=== PATIENT | male | born 1980 | race Caucasian/White ===

== ENCOUNTER → 2019-08-17 16:16 | Outpatient (BNVA) | payer OTHER, SELFPAY | PROVIDERS: Family Provider Nurse Practitioner; PCP Nurse Practitioner; Visit Provider Nurse Practitioner Family | DX: F17.200 Nicotine dependence, unspecified, uncomplicated (principal); I10 Essential (primary) hypertension | CPT/HCPCS: 80053; 80061; 83721; 85025 ==

== ENCOUNTER → 2020-05-06 10:44 | Outpatient (BNVA) | payer OTHER, SELFPAY | PROVIDERS: Family Provider Nurse Practitioner; PCP Nurse Practitioner; Visit Provider Nurse Practitioner Family | DX: I10 Essential (primary) hypertension (principal); R53.83 Other fatigue; F17.200 Nicotine dependence, unspecified, uncomplicated | CPT/HCPCS: 80053; 80061; 82306; 82607; 84443; 85025 ==

== ENCOUNTER 2021-03-28 19:19 | Emergency (ER) | payer SELFPAY ==
[2021-03-28 19:22] VITALS: BP 139/94; PULSE 120; RESP 16; TEMP 36.8; O2SAT 97; BMI 25.7
--- NOTE | 2021-03-28 20:48 | W.ED.ALLEREA ---
HPI - Allergic Reaction General: Chief complaint: Allergic Reaction Stated complaint: Bee Sting/Swelling on neck Time Seen by Provider: 03/28/21 19:39 History of Present Illness: HPI narrative: 40-year-old male says he was stung by an insect in the mid back around 5:30 PM. He was stung again evidently in the left sabianist.Following, he began to notice raised areas on his arms, back, and left side of his neck. These are swollen red areas as well. He drank some children's Benadryl. No other treatment. He is not having any trouble breathing. He does note swelling in his neck, that is a bit difficult to swallow around he says. He is maintaining his own secretions. He has not had reactions like this in the past to stings. MD complaint: allergic reaction Onset (ago): hour(s) Exposure: insect bite Associated symptoms: Reports dysphagia; Deny abdominal pain, difficulty breathing, dizziness, facial swelling, lip swelling, nausea, tongue swelling or vomiting Severity: moderate Treatment prior to arrival: benadryl Previous Allergic Reaction History: none Review of Systems Const: Denies: fever(s) Card: Denies: chest pain Resp: Denies: dyspnea, productive cough, non-productive cough or wheezing GI: Reports: dysphagia; Denies: abdominal pain, nausea or vomiting Neuro: Denies: dizziness All/Imm: Denies: tongue swelling or facial swelling [facility] ED PFSH: Medical History (Updated 03/28/21 @ 21:58 by Jose Harper DO) Hypertension Surgical History Hx of shoulder surgery (~2010) Family History Grandfather Diabetes Hypertension Heart disease Social History Smoking and tobacco status: current every day smoker cigarettes Years cigarettes smoked: 20 Second hand smoke exposure: No Alcohol intake: never Lives independently: Yes Household members: spouse and children Marital status: service: No Current occupational status: employed History of recent travel: No Current gender identity: Male Physical Exam Const: COMMON NORMALS: no acute distress, patient oriented x3, healthy appearing and alert Eye: COMMON NORMALS: Equal, round and reactive pupils present and EOMs intact bilaterally PUPIL: Yes Equal, round and reactive pupils present Chest: COMMONS NORMALS: normal inspection of the chest Resp: COMMON NORMALS: normal respiratory effort, No use of accessory muscles and clear to auscultation bilaterally AUSCULTATION: clear to auscultation bilaterally Cardio: COMMON NORMALS: regular rate and regular rhythm RATE: regular rate RHYTHM: regular rhythm Neuro: COMMON NORMALS: patient oriented x3 SENSORIUM/ORIENTATION: Yes alert Skin: NARRATIVE SKIN EXAM: Soft tissue swelling to the left side of the neck with minimal redness. Minimal tenderness. Apparent sting to the mid thoracic back with mild local reaction. Apparent sting to the left sabianist with minimal reaction. Raised urticaria on the right forearm. Course Vital Signs: Vital signs: Vital Signs Temperature 98.3 F 03/28/21 19:22 Pulse Rate 78 03/28/21 22:12 Respiratory Rate 20 H 03/28/21 22:12 Blood Pressure 138/82 03/28/21 22:12 Pulse Oximetry 99 03/28/21 22:12 MDM - Allergic Reaction MDM Narrative: Medical decision making narrative: 40-year-old male with localized swelling to his left neck following insect sting. He is improved now after IV Benadryl and Solu-Medrol as well as Pepcid. He is swallowing much easier. He will be prescribed an EpiPen, in case he has a more severe reaction the next time he is stung. Methylprednisolone for the next few days in order to prevent rebound reaction. Benadryl for the next 24 hours. Discharge Plan Discharge Patient Disposition: Home Clinical Impression: Allergic reaction Qualifiers: Encounter type: initial encounter Qualified Code(s): T78.40XA - Allergy, unspecified, initial encounter Insect bite Qualifiers: Encounter type: initial encounter Site of insect bite: thoracic wall Front or back of thoracic wall: back Thoracic wall location detail: unspecified Qualified Code(s): S20.469A - Insect bite (nonvenomous) of unspecified back wall of thorax, initial encounter Condition: Stable Prescriptions: New Medrol (Adair) 4 mg tablets,dose pack See Rx Instructions .ROUTE .COMPLEX Qty: 21 RF: 0 EpiPen 2-Adair 0.3 mg/0.3 mL auto-injector 0.3 mg IM Q10M PRN (Reason: hypersensitivity reaction) Qty: 2 RF: 0 No Action lisinopril 10 mg tablet See Rx Instructions .ROUTE .COMPLEX Qty: 90 RF: 3 ergocalciferol (vitamin D2) 1,250 mcg (50,000 unit) capsule 1,250 mcg PO DAILY Qty: 4 RF: 2 Discharge Orders: Discharge ED (Routine); Ordered 03/28/21 Ordered By: Jose Harper Referrals: Christi Vu FNP [Primary Care Provider] - 4-7 days Patient Instructions: Allergic Reaction, Insect Bite or Sting (ED) Activity Restrictions/Additional Instructions: Use Benadryl 25 mg every 6 hours for the next 24 hours, then as needed. Other medications as directed. After 24 hours, you may consider using Claritin or Zyrtec instead of Benadryl. An EpiPen has been prescribed to you. Only use the EpiPen for significant reactions after resting. If you use the EpiPen, you should come to the emergency department for evaluation immediately following. Return for any concerns. Coding Level of Care Code ED Clinical Nurse Leader for [facility] Exam Detailed
[2021-03-28] MEDS: diphenhydrAMINE 50 mg/mL SDV 1mL IVP (20:52)
[2021-03-28] MEDS: famotidine 20 mg/2 mL INJ IVP (20:52)
[2021-03-28 21:30] VITALS: BP 141/78; PULSE 78; RESP 20; O2SAT 99
[2021-03-28 22:12] VITALS: BP 138/82; PULSE 78; RESP 20; O2SAT 99
== END 2021-03-28 22:00 | disposition home or self-care (01) ==
PROVIDERS: Emergency Provider Emergency Medicine; PCP Nurse Practitioner Family
DX: T63.441A Toxic effect of venom of bees, accidental (unintentional), initial encounter (principal); I10 Essential (primary) hypertension; F17.210 Nicotine dependence, cigarettes, uncomplicated
CPT/HCPCS: 96374; 96375; 99283; J1200; J2930; J3490

== ENCOUNTER → 2021-04-14 08:38 | Outpatient (BNVA) | payer SELFPAY | PROVIDERS: PCP Nurse Practitioner Family; Visit Provider Dermatology | DX: Z13.9 Encounter for screening, unspecified (principal) ==

== ENCOUNTER → 2022-05-11 11:03 | Outpatient (BNVA) | payer OTHER, SELFPAY | PROVIDERS: PCP Nurse Practitioner Family; Visit Provider Psychiatry & Neurology Neurology | DX: F90.0 Attention-deficit hyperactivity disorder, predominantly inattentive type (principal); Z79.899 Other long term (current) drug therapy | CPT/HCPCS: 80053; 80061; 83036; 84443; 85025 ==

== ENCOUNTER → 2023-06-23 17:09 | Outpatient (BNVA) | payer BC, SELFPAY | PROVIDERS: PCP Nurse Practitioner Family; Visit Provider Nurse Practitioner | DX: R50.9 Fever, unspecified (principal); J06.9 Acute upper respiratory infection, unspecified | CPT/HCPCS: 87426 ==

== ENCOUNTER → 2023-06-24 10:52 | Outpatient (BNVA) | payer BC, SELFPAY | PROVIDERS: PCP Nurse Practitioner Family; Visit Provider Nurse Practitioner Psychiatric/Mental Health | DX: Z79.899 Other long term (current) drug therapy (principal); F90.0 Attention-deficit hyperactivity disorder, predominantly inattentive type; F51.01 Primary insomnia; F17.210 Nicotine dependence, cigarettes, uncomplicated | CPT/HCPCS: 80053; 80307 ==

== ENCOUNTER → 2023-10-28 11:22 | Outpatient (BNVA) | payer BC, SELFPAY | PROVIDERS: PCP Nurse Practitioner Family; Visit Provider Nurse Practitioner Family | DX: I10 Essential (primary) hypertension (principal) | CPT/HCPCS: 80053; 80061; 85025 ==

== ENCOUNTER → 2024-04-30 11:10 | Outpatient (BNVA) | payer BC, SELFPAY | PROVIDERS: PCP Nurse Practitioner Family; Visit Provider Nurse Practitioner Family | DX: I10 Essential (primary) hypertension (principal) | CPT/HCPCS: 80053; 80061; 84443; 85025 ==

== ENCOUNTER 2024-06-04 14:38 | Emergency (ER) | payer BC, SELFPAY ==
[2024-06-04 14:42] VITALS: BP 134/85; PULSE 100; RESP 16; TEMP 36.4; O2SAT 99
--- NOTE | 2024-06-04 16:19 | CTR_ITS ---
PROCEDURE INFORMATION: Exam: CT Head Without Contrast Exam date and time: 06/04/2024 4:44 PM Age: 43 years old Clinical indication: Injury or trauma; Fall; Laceration; Without residual foreign body; Other: Lt eyebrow; Additional info: RDZ TECHNIQUE: Imaging protocol: Computed tomography of the head without contrast. Radiation optimization: All CT scans at this facility use at least one of these dose optimization techniques: automated exposure control; mA and/or kV adjustment per patient size (includes targeted exams where dose is matched to clinical indication); or iterative reconstruction. COMPARISON: No relevant prior studies available. RADIATION DOSE METRICS: Total DLP (mGy-cm): 1084.35 FINDINGS: Brain: No midline shift. Ventricles, cisterns, and sulci are normal. No mass, acute infarct, hemorrhage, or extraaxial fluid collection. Cerebral ventricles: No ventriculomegaly. Paranasal sinuses: Visualized sinuses are unremarkable. No fluid levels. Mastoid air cells: Visualized mastoid air cells are well aerated. Bones: Unremarkable. No acute fracture. Soft tissues: Unremarkable. CT/CT head wo con* [id number] IMPRESSION: No acute intracranial abnormality.
--- NOTE | 2024-06-04 16:52 | XRR_ITS ---
PROCEDURE INFORMATION: Exam: XR Left Ribs with PA Chest Exam date and time: 06/04/2024 5:26 PM Age: 43 years old Clinical indication: Injury or trauma; Fall; Rib area, left side; Blunt trauma TECHNIQUE: Imaging protocol: Radiologic exam of the left ribs with PA chest. Views: 3 views COMPARISON: No relevant prior studies available. FINDINGS: Lungs: Unremarkable. No consolidation. Pleural spaces: Unremarkable. No pleural effusion. No pneumothorax. Heart/Mediastinum: Unremarkable. No cardiomegaly. Bones/joints: Unremarkable. XR/XR ribs LT mn 3V w CXR1V [id number] IMPRESSION: No acute findings.
--- NOTE | 2024-06-04 16:52 | XRR_ITS ---
PROCEDURE INFORMATION: Exam: XR Left Wrist Exam date and time: 06/04/2024 5:29 PM Age: 43 years old Clinical indication: Injury or trauma; Fall; Other: Unknown TECHNIQUE: Imaging protocol: Radiologic exam of the left wrist. Views: 3 or more views. COMPARISON: No relevant prior studies available. FINDINGS: Bones/joints: Normal. Soft tissues: Normal. XR/XR wrist LT min 3V* [id number] IMPRESSION: No acute bony abnormality.
--- NOTE | 2024-06-04 16:56 | ED_ITS ---
HPI - Fall 2 General: Chief Complaint: Fall Stated Complaint: lac left eyebrow (fall, hit head) Time Seen by Provider: 06/04/24 16:36 Source: patient Mode of arrival: ambulatory Limitations: no limitations History of Present Illness: 43-year-old male states he had had a fal l roughly 1 hour ago he states he is unsure what happened he does not really remember the events but knows he and hit his head he has a small laceration above his right eyebrow he states he had a headache since falling he states had some left-sided chest pain as well as much worse with palpation left wrist pain. Denies any headache or chest pain before the event. Associated symptoms-after fall: Reports chest pain and headache(s); Denies abdominal pain or neck pain Related Data Previous Rx's Medication Instructions Recorded epinephrine 0.3 mg/0.3 mL 0.3 mg (0.3 mL) IM Q10M PRN 10/28/23 injection, auto-injector (EpiPen hypersensitivity reaction #2 ea 2-Adair) lisinopril 20 See Rx Instructions .Route 04/30/24 mg-hydrochlorothiazide 12.5 mg .COMPLEX #90 tabs tablet nicotine See Rx Instructions transdermal 04/30/24 21mg/24hr-14mg/24hr-7mg/24hr daily .COMPLEX #56 patches transderm patches,sequentl mirtazapine 15 mg tablet 15 mg PO BEDTIME PRN sleep 30 days 05/17/24 #30 tabs dextroamphetamine-amphetamine ER 40 mg (2 x 20 mg) PO QAM 30 days 05/30/24 20 mg 24hr capsule,extend release #60 caps Allergies Allergy/AdvReac Type Severity Reaction Status Date / Time bee venom protein (honey bee) Allergy Severe ALGY-Anaphy Verified 06/04/24 14:51 laxis Review of Systems 2 Const: Denies: fever(s), chills, body aches or change in appetite Eyes: Denies: change in vision ENMT: Denies: throat pain or dental pain Card: Reports: chest pain Resp: Denies: dyspnea GI: Denies: abdominal pain, nausea, vomiting or diarrhea Musc: Reports: extremity pain; Denies: neck pain or back pain Skin/Breast: Denies: rash Neuro: Reports: headache(s) PFSH ED 2 PFSH: Medical History Primary insomnia Nicotine dependence, cigarettes, uncomplicated ADHD (attention deficit hyperactivity disorder), inattentive type Psychiatric care Hypertension Surgical History Hx of shoulder surgery (~2010) Family History Grandfather Diabetes Hypertension Heart disease Social History Smoking and tobacco/nicotine status: current every day tobacco/nicotine user cigarettes Packs smoked per day: 0.1 Years cigarettes smoked: 20 [ Other cigarette details: smokes 2 cigarettes/day] Second hand smoke exposure: No Alcohol intake: never Substance/Drug Use: never Caregiver/support person: Yes (spouse) Lives independently: Yes Household members: spouse and children Marital status: service: No Current occupational status: employed Current gender identity: Male Special yvonne needs: No Physical Exam 2 Const: COMMON NORMALS: no acute distress, patient oriented x3 and healthy appearing HENMT: OTHER: 2 cm laceration over right eyebrow Neck/C-Spine: COMMON NORMALS: full ROM and supple Chest: COMMONS NORMALS: normal inspection of the chest OTHER: Tenderness noted to left chest wall Resp: COMMON NORMALS: normal respiratory effort, No retractions, No use of accessory muscles and clear to auscultation bilaterally AUSCULTATION: clear to auscultation bilaterally Cardio: COMMON NORMALS: regular rate, regular rhythm and No murmurs present (Cardio) RATE: regular rate RHYTHM: regular rhythm Extremity: COMMON NORMALS: full ROM NARRATIVE EXTREMITY EXAM: Tenderness to left wrist Neuro: COMMON NORMALS: patient oriented x3, moves all extremities and no focal motor deficits Psych: COMMON NORMALS: mental status grossly normal, Normal thought process present and cooperative THOUGHT PROCESS: Normal thought process present Skin: COMMON NORMALS: no rashes or lesions noted and no wounds GENERAL SKIN EXAM: no rashes or lesions noted Procedures Laceration Laceration 1: Site: face Side (If applicable): right Size (cm): 2 Description: linear Depth: simple, single layer Pre-repair: wound explored Skin layer closed with: other (dermabond) Course 2 Vital Signs: Vital signs: Vital Signs Temperature 97.6 F 06/04/24 14:42 Pulse Rate 100 06/04/24 14:42 Respiratory Rate 16 06/04/24 14:42 Blood Pressure 134/85 06/04/24 14:42 Pulse Oximetry 99 06/04/24 14:42 Oxygen Delivery Me thod Room Air 06/04/24 14:42 MDM - Fall Medical Decision Making Patient presents for closed head injury after a fall head CT here is normal did repair his laceration with skin adhesive glue. X-rays here shows no fractures his blood counts normal EKG is normal he stable for discharge follow-up with PCP return if worsening. Medical Records I reviewed the patient's medical records. Lab Data I reviewed the patient's lab results. 06/04/24 17:[address] 06/04/24 16:19 IMPRESSION: No acute intracranial abnormality. Wrist X-Ray 06/04/24 16:52 IMPRESSION: No acute bony abnormality. Laboratory Results WBC 9.97 10^3/uL (3.29-11.43) 06/04/24 17:52 RBC 4.94 10^6/uL (3.85-5.65) 06/04/24 17:52 Hgb 15.70 g/dL (11.27-16.99) 06/04/24 17:52 Hct 46.0 % (37-53) 06/04/24 17:52 MCV 93.1 fl (82-101) 06/04/24 17:52 MCH 31.8 pg (27-33) 06/04/24 17:52 MCHC 34.1 g/dL (30-55) 06/04/24 17:52 RDW 13.1 % (12.1-15.1) 06/04/24 17:52 Plt Count 247 10^3/cmm (157-399) 06/04/24 17:52 MPV 9.9 fL (7.4-10.4) 06/04/24 17:52 Neut % (Auto) 68.5 % 06/04/24 17:52 Lymph % (Auto) 24.6 % 06/04/24 17:52 Humphreys % (Auto) 5.8 % 06/04/24 17:52 Eos % (Auto) 0.5 % 06/04/24 17:52 Baso % (Auto) 0.4 % 06/04/24 17:52 Neut # (Auto) 6.83 10^3/uL (1.8-7.7) 06/04/24 17:52 Lymph # (Auto) 2.5 10^3/uL (0.8-4.8) 06/04/24 17:52 Humphreys # (Auto) 0.6 10^3/uL (0.2-0.9) 06/04/24 17:52 Eos # (Auto) 0.1 10^3/uL (0.0-0.8) 06/04/24 17:52 Baso # (Auto) 0.0 10^3/uL (0.0-0.1) 06/04/24 17:52 Nucleated RBC % (auto) 0 % 06/04/24 17:52 Nucleated RBCs # 0.0 /100WBC 06/04/24 17:52 All radiology interpretation(s) finalized by discharge EKG Data EKG 1: I personally reviewed and interpreted this EKG as follows: EKG interpretation date: 06/04/24 EKG interpretation time: 17:02 Interpretation: nsr hr [address] elevation qrs 86 qtc 369 Discharge Plan Discharge Patient Disposition: Home Clinical Impression: Head injury, Contusion of left chest wall, Laceration of head Condition: Stable Prescriptions: No Action lisinopril-hydrochlorothiazide 20-12.5 mg tablet See Rx Instructions .ROUTE .COMPLEX Qty: 90 4RF Dose Instruction: TAKE ONE TABLET BY MOUTH DAILY Rx Instructions: TAKE ONE TABLET BY MOUTH DAILY nicotine 21-14-7 mg/24 hr patch, TD daily, sequential See Rx Instructions transdermal .COMPLEX Qty: 56 0RF Rx Instructions: apply 1-21 mg NICOTINE PATCH daily for 28 days; follow with 1-14 mg PATCH daily for 14 days, then 1-7mg PATCH daily for 14 days transdermal dextroamphetamine-amphetamine 20 mg capsule,extended release 24hr 40 mg PO QAM 30 Days Qty: 60 0RF Rx Instructions: Take two capsules every morning epinephrine [EpiPen 2-Adair] 0.3 mg/0.3 mL auto-injector 0.3 mg IM Q10M PRN (Reason: hypersensitivity reaction) Qty: 2 0RF Rx Instructions: for 2 doses mirtazapine 15 mg tablet 15 mg PO BEDTIME PRN (Reason: sleep) 30 Days Qty: 30 4RF Rx Instructions: May take half to one tablet at bedtime as needed for sleep Discharge Orders: Discharge ED (Routine); Ordered 06/04/24 Ordered By: Marielena Perez Referrals: Christi Vu FNP [Primary Care Provider] - 4-7 days Discharge Diet: Advance as tolerated Discharge Activity: Resume usual activity Patient Instructions: Laceration (ED), Skin Adhesive Care (ED), Chest Contusion (ED) Coding Level of Care Code ED Therapeutic Case Manager for Tang Boothe
--- NOTE | 2024-06-04 17:02 | ECG_ITS ---
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 Measurements Intervals [place] Rate: 88 P: 63 NH: 163 QRS: 46 QRSD: 86 T: 28 QT: 323 QTc: 392 Interpretive Statements SINUS RHYTHM NONSPECIFIC T-WAVE ABNORMALITY Compared to ECG 10/19/2015 20:35:17 T-wave abnormality now present Sinus tachycardia no longer present Electronically Signed On 06-07-2024 21:27:03 BED AND BREAKFAST INNKEEPER by Venkata Oakley M.D. [email or web address]
[2024-06-04] MEDS: HYDROcodone-acetaminophen 5-325 mg Tablet 1 TAB PO (17:43)
[2024-06-04 17:59] LABS: Basophils % 0.4 %; Eosinophils # 0.1 10^3/uL (0.0-0.8); Eosinophils % 0.5 %; Lymphocytes # 2.5 10^3/uL (0.8-4.8); Lymphocytes % 24.6 %; Mean Corpuscular HGB Conc 34.1 g/dL (30-55); Mean Corpuscular Hemoglobin 31.8 pg (27-33); Mean Corpuscular Volume 93.1 fl (82-101); Mean Platelet Volume 9.9 fL (7.4-10.4); Monocytes # 0.6 10^3/uL (0.2-0.9); Monocytes % 5.8 %; Neutrophils # 6.83 10^3/uL (1.8-7.7); Neutrophils % 68.5 %; Nucleated Red Blood Cells % 0 %; Platelet Count 247 10^3/cmm (157-399); Red Blood Count 4.94 10^6/uL (3.85-5.65); Red Cell Distribution Width 13.1 % (12.1-15.1); White Blood Count 9.97 10^3/uL (3.29-11.43)
[2024-06-04 18:22] VITALS: BP 136/107; PULSE 88; O2SAT 98
== END 2024-06-04 18:24 | disposition home or self-care (01) ==
PROVIDERS: Emergency Provider Emergency Medicine; PCP Nurse Practitioner Family
DX: S01.81XA Laceration without foreign body of other part of head, initial encounter (principal); S20.212A Contusion of left front wall of thorax, initial encounter; F17.210 Nicotine dependence, cigarettes, uncomplicated; I10 Essential (primary) hypertension; W19.XXXA Unspecified fall, initial encounter
CPT/HCPCS: 12011; 70450; 71101; 73110; 85025; 93005; 99285

== ENCOUNTER → 2025-05-02 10:27 | Outpatient (BNVA) | payer BC, SELFPAY | PROVIDERS: PCP Nurse Practitioner Family; Visit Provider Nurse Practitioner Family | DX: I10 Essential (primary) hypertension (principal) | CPT/HCPCS: 80053; 80061; 84443; 85025 ==